=== PATIENT | male | born 1990 | race Two or more races ===

== ENCOUNTER 2016-11-13 22:08 | Day surgery (SDC) | payer MEDICAID ==
[2016-11-13 22:48] LABS: ABSOLUTE NEUTROPHIL COUNT 5.2 K/mm3 (1.8-7.7); BASO # 0.1 K/mm3 (0.0-0.2); BASO % 0.5 % (0.2-1.0); EOS # 0.2 (0.0-0.5); EOS % 2.2 % (0.9-2.9); HEMATOCRIT 47.6 % (32.0-52.0); HEMOGLOBIN 16.8 gm/l (14.0-18.0); IMM NEUT% 0.4 % (0-1); LYMPH # 3.4 (1.0-4.8); MEAN CELL VOLUME 88.6 fl (80.0-94.0); MEAN CORPUSCULAR HEMOGLOBIN 31.3 pg (27.0-31.0); MEAN CORPUSCULAR HGB CONC 35.3 g/dl (33.0-37.0); MEAN PLATELET VOLUME 9.1 fl (7.4-10.4); MONO # 0.8 (0.0-0.8); MONO % 8.1 % (4-12); NEUT % 53.8 % (43-75); PLATELET COUNT 366 K/mm3 (130-400); RED CELL DISTRIBUTION WIDTH 11.9 % (11.5-14.5)
[2016-11-13 22:49] LABS: URINE BILIRUBIN NEGATIVE (NEGATIVE); URINE BLOOD TRACE (NEGATIVE); URINE GLUCOSE (UA) NEGATIVE (NEGATIVE); URINE LEUKOCYTE ESTERASE NEGATIVE (NEGATIVE); URINE NITRITE NEGATIVE (NEGATIVE); URINE PROTEIN NEGATIVE (NEGATIVE); URINE UROBILINOGEN NORMAL (0-1 mg/dl)
[2016-11-13] MEDS ORDERED: MAALOX/LIDO2%VISC/SIMETHICONE 40 ML BOT ONE (22:51)
[2016-11-13 22:53] LABS: URINE APPEARANCE CLEAR; URINE COLOR YELLOW
[2016-11-13 23:00] LABS: ALB/GLOB RATIO 1.5 (>1.0); ALBUMIN 4.7 gm/dL (3.5-5.7); CALCIUM 9.7 mg/dL (8.6-10.3)
[2016-11-13] MEDS ORDERED: SODIUM CHLORIDE 0.9% 1,000 ML ONE (23:06)
[2016-11-13 23:07] LABS: URINE BACTERIA 0; URINE EPITHELIAL CELLS 0-2 /hpf; URINE RBC 0-2 /hpf; URINE WBC NEG /hpf
[2016-11-14] MEDS ORDERED: HYDROMORPHONE HCL 0.5 MG/0.5 ML SYRINGE ONE (01:21)
[2016-11-14] MEDS ORDERED: PIPERACILLIN-TAZO PREMIX BAG 50 ML IV ONE ×2 (01:33→04:44)
[2016-11-14] MEDS ORDERED: ONDANSETRON 4 MG/2ML 2 ML VIAL IV PRN ×2 (02:21→16:30)
[2016-11-14] MEDS ORDERED: DIPHENHYDRAMINE HCL 50 MG/1 ML VIAL IV PRN (02:21)
[2016-11-14] MEDS ORDERED: MULTIVITAMINS 10 ML, FOLIC ACID 2 MG, MAGNESIUM SULFATE 1 G/2 ML 2 G, THIAMINE HCL 100 ... IV ONE ×5 (02:21)
[2016-11-14] MEDS ORDERED: LORAZEPAM 2 MG/ML 1ML SDV IV PRN (02:21)
[2016-11-14] MEDS ORDERED: BLISTEX LIPSTICK 1 EACH TP PRN (02:21)
[2016-11-14 02:46] VITALS: BMI 32.5
[2016-11-14] MEDS ORDERED: MORPHINE SULFATE 4 MG/ML SYRINGE IV PRN (04:08)
[2016-11-14] MEDS ORDERED: PUMP TUBING ONE ×2 (04:16→05:11)
[2016-11-14] MEDS: MORPHINE SULFATE 2 MG/ML SYRINGE IV PRN ×2 (04:23→05:17)
[2016-11-14] MEDS: LACTATED RINGERS 1,000 ML IV SCH ×2 (04:23→11:22)
[2016-11-14] MEDS ORDERED: MULTIVITAMINS 1,000 ML IV ONE (04:44)
[2016-11-14] MEDS ORDERED: SODIUM CHLORIDE 0.9% 1,000 ML ONE (04:45)
[2016-11-14] MEDS ORDERED: SODIUM CHLORIDE 0.9% FLUSH 10 ML ONE (05:18)
[2016-11-14] MEDS ORDERED: IV START KIT ONE (05:19)
[2016-11-14] MEDS ORDERED: PIPERACILLIN-TAZO PREMIX BAG 3.375 G in Premix (D5W) 50 ml 1 EACH IV SCH (06:30)
[2016-11-14 07:25] LABS: ALB/GLOB RATIO 1.4 (>1.0); ALBUMIN 3.9 gm/dL (3.5-5.7)
--- NOTE | 2016-11-14 07:30 | US ---
ABDOMINAL-LIMITED History: Right upper quadrant pain for a week. Findings: Gallbladder: The gallbladder demonstrates no discrete shadowing intraluminal gallstones. There is the suggestion of intraluminal sludge material however. The gallbladder wall is prominent measuring 4.4 mm transversely. No pericholecystic fluid is seen. A+ sonographic Rich sign was elicited during the course of the exam. Biliary tree: The common hepatic duct measures 2.7 millimeters adjacent to the hepatic artery. Liver: the visualized liver is homogeneous. No masses or evidence of intra-hepatic biliary dilatation are seen. Impression: 1. No discrete gallstones visualized. However, there is intraluminal sludge arterial observed with color wall thickening and a positive sonographic Rich sign raising concern for acute or chronic acalculous cholecystitis. No significant biliary dilatation is observed. The findings were called to the emergency room at 0048 hours, 11/14/2016, by [facility].
--- NOTE | 2016-11-14 08:05 | PDOC1 ---
History & Physical: CC: RUQ Pain HPI: 26yo M with RUQ pain. This started 4 weeks ago, was intermittent, crampy, and worse after drinking alcohol or eating spicy foods. There was no relation to fatty foods. Last night, the pain worsened and lasted longer than before, prompting ER evaluation. He had some NV earlier in the week, which he attributes to a hangover after a night of binge drinking. He also admits to an improving cough that he attributes to recovering from a cold over the last 2-3 weeks. The patient denies any recent F/C/CP/SOB, change in bladder fx, constipation, diarrhea, unintentional weight loss, easy bleeding/bruising, or other associated symptoms. REVIEW OF SYSTEMS CONSTITUTIONAL: As per HPI. EARS, NOSE, MOUTH, THROAT: ~No sneezing CARDIOVASCULAR: ~As per HPI. RESPIRATORY: ~As per HPI. GASTROINTESTINAL: ~As per HPI. GENITOURINARY: ~As per HPI. NEUROLOGICAL: ~No history of seizures HEMATOLOGIC: ~As per HPI. MUSCULOSKELETAL: ~No change in strength. LYMPHATICS: ~No history of splenectomy. PSYCHIATRIC: ~No change in personality or affect PMH: None PSH: None Meds: None All: NKDA SH: Smokes 2g of Marijuana/week, drinks 16 alcoholic beverages/week. Denies tobacco FH: No FH of cancers Physical Exam: General/Constitutional: Vitals documented below, comfortable in NAD Psych: A&O x 3, normal judgment and insight. Recent and remote memory intact. Mood and affect normal. Eyes: Pupils equal, no scleral icterus Ears, Nose, Mouth, Throat: gross hearing intact Neck: Supple Heart: RRR, no LE edema Lungs: Equal rise and fall of chest wall, non-labored breathing, no audible wheezes Neuro: Gross sensation intact Abdomen: Soft, obese, NT/ND, no guarding. Negative [place] sign. Labs: Below Radiology: Gallbladder: The gallbladder demonstrates no discrete shadowing intraluminal gallstones. There is the suggestion of intraluminal sludge material however. The gallbladder wall is prominent measuring 4.4 mm transversely. No pericholecystic fluid is seen. A+ sonographic Rich sign was elicited during the course of the exam. Biliary tree: The common hepatic duct measures 2.7 millimeters adjacent to the hepatic artery. Liver: the visualized liver is homogeneous. No masses or evidence of intra- hepatic biliary dilatation are seen. Impression: 1. No discrete gallstones visualized. However, there is intraluminal sludge arterial observed with color wall thickening and a positive sonographic Rich sign raising concern for acute or chronic acalculous cholecystitis. No significant biliary dilatation is observed. A/P: 26yo M with gallbladder wall thickening, +SMS, and sludge (microlithiasis) consistent with acute cholecystitis. I recommend cholecystectomy. The operation and expected post-operative course were discussed at length. We discussed the risks of the operation to include, but not limited to: bleeding, pain, infection, scar, damage to surrounding structures (liver, small intestine , stomach, colon), damage to bile ducts (CBD injury risk 1/300), retained stone , bile leak, need for conversion to an open procedure, need for cholangiogram, need for additional procedures, failure to improve symptoms, and the risks of anesthesia (heart attack, arrhythmia, stroke, blood clot, and ). The patient understands these risks and agrees to proceed with surgery. Pt started on IV Zosyn upon admission. Will plan for laparoscopic cholecystectomy this afternoon. Repeat LFTs downtrended and bilirubin normal so no planned cholangiogram. Given pts alcohol consumption, I started him on a CIWA protocol. Keegan Vicente MD General Surgeon
[2016-11-14] MEDS: PIPERACILLIN SODIUM/TAZOBACTAM 3.375 G in NS 0.9% (MINI-BAG PLUS) 50 ML IV SCH ×2 (11:52→18:16)
[2016-11-14] MEDS ORDERED: LACTATED RINGERS 1,000 ML ONE (14:09)
[2016-11-14] MEDS ORDERED: MIDAZOLAM HCL 1 MG/ML 2ML VIAL ONE (15:23)
[2016-11-14] MEDS ORDERED: LIDOCAINE 2% (MULTI DOSE) 10 ML VIAL ONE (15:23)
[2016-11-14] MEDS ORDERED: PROPOFOL 40 ML IV ONE (15:23)
[2016-11-14] MEDS ORDERED: FENTANYL 5 ML ONE (15:23)
[2016-11-14] MEDS ORDERED: SUCCINYLCHOLINE CHL 20 MG/ML DOSE ONE (15:23)
[2016-11-14] MEDS ORDERED: ROCURONIUM BROMIDE 10 MG/ML DOSE IV ONE (15:23)
[2016-11-14] MEDS ORDERED: LIDOCAINE 1%/EPI (MULTI DOSE) 20 ML VIAL ONE (15:31)
[2016-11-14] MEDS ORDERED: BUPIVACAINE 0.5% (PRES FREE) 30 ML VIAL ONE (15:31)
[2016-11-14] MEDS ORDERED: PROMETHAZINE HCL 25 MG/ML VIAL IM PRN (16:30)
[2016-11-14] MEDS ORDERED: FENTANYL 100 MCG/2 ML VIAL IV PRN (16:30)
[2016-11-14] MEDS ORDERED: LACTATED RINGERS 1,000 ML IV SCH (16:30)
[2016-11-14] MEDS ORDERED: HYDROMORPHONE HCL 1 MG/ML SYRINGE IV PRN (16:30)
[2016-11-14] MEDS ORDERED: ATROPINE SULFATE 0.4 MG/1 ML VIAL IV PRN (16:30)
[2016-11-14] MEDS ORDERED: NALOXONE HCL 0.4 MG/ML VIAL IV PRN (16:30)
[2016-11-14] MEDS ORDERED: GLYCOPYRROLATE 0.2 MG/ML 1ML VIAL ONE (16:31)
[2016-11-14] MEDS ORDERED: NEOSTIGMINE METHYLSULFATE 1 MG/ML DOSE ONE (16:31)
[2016-11-14] MEDS ORDERED: KETOROLAC TROMETHAMINE 30 MG/ML 1 ML VIAL ONE (17:11)
--- NOTE | 2016-11-14 17:29 | PCMON ---
OPERATIVE REPORT Date of Operation: 11/14/16 Pre-Op Diagnosis: Acute cholecystitis Post-Op Diagnosis: Chronic cholecystitis Operation: Laparoscopic Cholecystectomy Surgeon: Amara Vicente MD Vacuum Metalizing Supervisor: Brandi Osullivan Anesthesia: GETA Pre-Operative Antibiotics: Zosyn Specimen Sent to Lab: Gallbladder Infection Classification: 2 Estimated Blood Loss: 10mL Indication for Procedure: The patient is a 26 year old male with a one day history of right upper quadrant pain. A RUQ US demonstrates sludge, a thickened gallbladder wall, and a positive sonographic [place] sign. These findings are consistent with acute cholecystitis. The plan for today is a laparoscopic cholecystectomy. Description of Findings. There were no stones within the gallbladder. The gallbladder was chronically scarred consistent with chronic cholecystitis. Detailed Operative Report: The patient was met in the preoperative holding area by the operating team. All questions and concerns were addressed appropriately. He was then taken to the operating room where general anesthesia was induced. A Delaney catheter was placed. The abdomen was prepped and draped in the normal, sterile fashion. Local anesthetic was injected into the proposed infra-umbilical incision site. The skin was incised. The fascia was elevated and incised. Direct entry into the peritoneum was confirmed and a 10-mm balloon trocar was inserted. The abdomen was insufflated to a pressure of 15 mmHg, which the patient tolerated well. The laparoscope was inserted and the abdomen was inspected. There were no injuries noted from initial trocar placement. A 5 mm trocar was placed in the epigastric position. Two additional 5 mm trocars were placed along the right costal margin. The table was placed in the reverse Trendelenburg position with the right side elevated. The fundus of the gallbladder was grasped and retracted over the edge of the liver. There were mild adhesions to the liver and omentum consistent with chronic cholecystitis. The infundibulum was grasped and retracted towards the right lower quadrant. This maneuver exposed Calot's triangle. There were two tubular structures directly entering the gallbladder consistent with the cystic duct laterally and the cystic artery medially. These structures were circumferentially dissected. A critical view of safety was obtained. The cystic duct was triply clipped and divided. The cystic artery was diminutive and divided with electrocautery. The gallbladder was then dissected from its peritoneal attachments to the liver with electrocautery. The gallbladder was placed into an endoscopic retrieval bag. The gallbladder fossa was thoroughly irrigated and hemostasis was ensured. Secondary trocars were removed under direct vision. The infraumbilical trocar was removed, along with the specimen, and the abdomen was allowed to collapse. The fascia of the infra-umbilical site was closed with a 0 Vicryl suture in a [id number] fashion. All skin was closed with 4-0 Monocryl. The wounds were dressed with mastisol, steri-strips, and bandages. The Delaney catheter was removed. The patient was then awakened from anesthesia, extubated, and transported to the PACU without complication. Prior to closing, all sponge and instrument counts were correct. AMARA VICENTE MD
[2016-11-15] MEDS: OXYCODONE/ACETAMINOPHEN 5/325 MG TABLET PO PRN ×2 (02:56→07:44)
[2016-11-15] MEDS: MENTHOL/CETYLPYRD 1 EACH LOZENGE PO PRN ×2 (06:24→07:44)
[2016-11-15 07:18] VITALS: BP 124/79
--- NOTE | 2016-11-15 07:52 | PDOC43 ---
- Subjective S: Minimal pain. Tolerated clear liquids and some regular diet. No other complaints. Physical Exam: General/Constitutional: Vitals documented above, comfortable in NAD Psych: A&O x 3, normal judgment and insight. Recent and remote memory intact. Mood and affect normal. Eyes: Pupils equal, no scleral icterus Ears, Nose, Mouth, Throat: gross hearing intact Neck: Supple Heart: RRR, no LE edema Lungs: Equal rise and fall of chest wall, non-labored breathing, no audible wheezes Neuro: Gross sensation intact Abdomen: Soft, mild distension, appropriate incisional TTP, no guarding. A/P: 26yo M doing well POD#1 s/p laparoscopic cholecystectomy. Will advance diet , HLIV, and anticipate discharge later today. Keegan Vicente MD General Surgeon - Objective Vital Signs Temperature 98.5 F 11/15/16 07:17 Pulse Rate 70 11/15/16 07:17 Respiratory Rate 16 11/15/16 07:17 Blood Pressure 124/79 11/15/16 07:17 O2 Saturation by Pulse Oximetry 97 11/15/16 07:17 Oxygen Delivery Method Room Air Oxygen Flow Rate 0 Laboratory 11/13/16 22:30 11/14/16 06:30 Active Medication Orders Category Date Time Status Diphenhydramine HCl [Benadryl] Med 11/14/16 02:21 Active 12.5 mg IV Q6H PRN Lip [place] [Blistex] Med 11/14/16 02:21 Active 1 each TP PRN PRN Menthol/Cetylpyridinium [Cepacol] Med 11/14/16 02:21 Active 1 each PO PRN PRN Morphine Sulfate Med 11/14/16 04:08 Active 1 - 4 mg IV Q1H PRN Ondansetron 4 mg/2ml Vial [Zofran] Med 11/14/16 02:21 Active 4 mg IV Q4H PRN Oxycodone HCl/Acetaminophen [Percocet 5/325] Med 11/14/16 17:36 Active 1 - 2 tab PO Q4H PRN Sodium Chloride 0.9% Flush [Normal Saline 10ml Flush] Med 11/14/16 02:21 Active 10 - 50 ml IV PRN PRN Sodium Chloride 0.9% Flush [Normal Saline 10ml Flush] Med 11/14/16 09:00 Active 10 ml IV Q8HR Intake and Output 11/13/16 11/14/16 11/15/16 23:59 23:59 23:59 Intake Total 2037 1634 Output Total 232 1925 Balance 5330 -073
--- NOTE | 2016-11-15 08:09 | PDOC5 ---
ADMIT DATE: DISCHARGE DATE: 11/15/16 ADMISSION DIAGNOSES: acute cholecystitis PROCEDURES PERFORMED THIS HOSPITALIZATION: laparoscopic cholecystectomy CONSULTATIONS: general surgery HOSPITAL COURSE: This is a 26 year old was admitted with a diagnosis of cholecystitis. He was started on IV antibiotics and underwent a laparoscopic cholecystectomy, which he tolerated well. At the time of discharge, his pain was well controlled with oral pain medication, he was tolerating a regular diet , and ambulating without difficulty. He was discharged home on POD#1 in good condition. - Objective Vital Signs Temperature 98.5 F 11/15/16 07:17 Pulse Rate 70 11/15/16 07:17 Respiratory Rate 16 11/15/16 07:17 Blood Pressure 124/79 11/15/16 07:17 O2 Saturation by Pulse Oximetry 97 11/15/16 07:17 Oxygen Delivery Method Room Air Oxygen Flow Rate 0 - Discharge Plan Instruction Forms: Laparoscopic Cholecystectomy Prescriptions: Naproxen [NAPROSYN 500 MG TABLET (SHF)] 500 mg PO BID #30 tablet Oxycodone HCl/Acetaminophen [PERCOCET 5/325 MG TABLET (SHF)] 1 - 2 tab PO Q4H PRN #20 tab PRN Reason: Pain Polyethylene Glycol 3350 [MIRALAX 17 G PACKET (SHF)] 17 g PO DAILY #1 bot Follow-Up: Lily Thomas MD [Staff Physician] -
--- NOTE | 2016-11-17 10:46 | SURGPATH ---
[facility] [address] [place] [id number] Patient Name: FREDIS OCASIO MR#: [id number] : 1990 Gender: M Specimen #: [id number] Collected: 11/14/2016 Received: 11/16/2016 Reported: 11/17/2016 Submitting Phys: AMARA VILLAVICENCIO Copy To Phys: [facility] Clinical History / Pre-Operative Diagnosis: ACUTE CHOLECYSTITIS Specimen Source / Surgical Procedure Performed: GALLBLADDER Interpretation: GALLBLADDER, CHOLECYSTECTOMY: - CHRONIC CHOLECYSTITIS WITH CHOLESTEROLOSIS Electronically Signed Out Elma Nye M.D. Gross Description: The specimen is received in a formalin filled container labeled with the patient's name and "gallbladder". A previously incised gallbladder is 6.5 x 2.5 cm. The serosa is smooth and ochoa. The fibrotic and fatty gallbladder wall is thickened to 0.5 cm. The mucosa is red-ochoa and velvety with scattered slightly raised yellow flecks. There is no nodule or induration. There are no calculi within the lumen, cystic duct or specimen container. Three construction sales representative sections are submitted in one cassette including a cross section through the cystic duct surgical margin, a central cross section and a longitudinal section through the fundus. Nelson Hinojosa Microscopic Description: Sections from the gallbladder show mild transmural chronic inflammation. Collections of foamy histiocytes are seen throughout the lamina propria, representing cholesterolosis. 1: 58167 K81.1
== END 2016-11-15 09:00 | disposition home or self-care (01) ==
LOC: ED 22:08 → SDC 11-14 01:30 → MS 11-14 01:30 → SDC 11-15 09:00
PROVIDERS: ATTEND Surgery
PROC: 0FT44ZZ Resection of Gallbladder, Percutaneous Endoscopic Approach (ICD-10-PCS; principal; 2016-11-13)
DX: K81.1 Chronic cholecystitis (principal); F12.90 Cannabis use, unspecified, uncomplicated
CPT/HCPCS: 83690; 85025; 80053 ×2; 81001; 76705; 96375; 99285 ×2; 96361; 96365; 47562; A9270 ×5; J3010; J2270 ×3; J1885; J2250; J2405; J2543 ×2; J7120 ×2; J7030 ×3; J1170; J2001